=== PATIENT | male | born 1975 ===

== ENCOUNTER 2025-02-16 11:44 | Emergency (ER) | payer MEDICAID, SELFPAY ==
--- NOTE | ~2025-02-16 | CT_ITS ---
CLINICAL HISTORY: DIZZINESS CT Head Without Contrast: Comparison: None Findings: Cortical sulci are symmetric Basal ganglia are unremarkable No shift in midline structures No intraparenchymal bleeding or abnormal extra axial blood fluid collections Normal pituitary size Clear paranasal sinuses Unremarkable orbital structures No depressed fractures Impression: Unremarkable CT of the head. ASPECTS score 10, NORMAL This document has been electronically signed by: Spencer Bunn MD on 02/16/2025 13:29:29
--- NOTE | ~2025-02-16 | CT_ITS ---
CLINICAL HISTORY: dizziness, nausea, vomiting CTA HEAD, bolus contrast injection. 3D reconstructions and MPRs: Comparison: None Findings: Right Carotid Siphon: Normal Right Anterior Cerebral Artery: A1 and A2 segments are unremarkable. There is peripheral cortical enhancement. Right Middle Cerebral Artery: M1 and M2 segments are unremarkable. There is peripheral cortical enhancement. Right Posterior Cerebral Artery: P1 and P2 segments are unremarkable. There is peripheral enhancement Left Carotid Siphon: Normal Left Anterior Cerebral Artery: A1 and A2 segments are unremarkable. There is peripheral cortical enhancement. Left Middle Cerebral Artery: M1 and M2 segments are unremarkable. There is peripheral cortical enhancement. Left Posterior Cerebral Artery: P1 and P2 segments are unremarkable. There is peripheral cortical enhancement. Basilar Artery: Normal Venous drainage: Normal Impression: No signs of aneurysm. No signs of arterial venous malformation. CTA Neck , Bolus contrast injection, 3D reconstructions and MPRs: Comparison: None Findings: Soft tissues of the neck are unremarkable. Superior aorta and branch vessels are unremarkable. Right carotid: No stenosis. (NASCET) Right vertebral: No stenosis. Left Carotid: No stenosis. (NASCET) Left Vertebral: No stenosis. Impression: No stenosis. No aneurysm or dissection. This document has been electronically signed by: Spencer Bunn MD on 02/16/2025 13:39:18
[2025-02-16 11:50] VITALS: BP 139/54; BP 160/88; PULSE 67; PULSE 80; RESP 18; TEMP 36.4; O2SAT 97; O2SAT 98; BMI 24.4
--- NOTE | 2025-02-16 12:37 | ED_ITS ---
HPI - General Adult General Chief complaint: General Medical Stated complaint: DIZZY,N/V,BP 184/102 PER EMS Time Seen by Provider: 02/16/25 12:37 Source: patient, family and RN notes reviewed Mode of arrival: ambulatory Limitations: no limitations History of Present Illness ED Provider: Edgar Gallagher PA-C HPI narrative: This is a [id number]-male, with no known medical problems, who presents today with concerns for dizziness which he noticed when he woke up this morning at 10:00AM. He states that the dizziness worsens with positional changes and has been constant since he woke up. He reports that he was unable to walk due to the severe dizziness. He denies hx of similar symptoms in the past. He does endorse nausea and multiple episodes of vomiting. He denies any recent illness. Reports that he was feeling well yesterday. He denies any chest pain, shortness of breath. He does report some mild epigastric pain. No diarrhea. No fevers or urinary symptoms. No headache or visual changes. No recent head injury. He is not on anticoagulation. Denies taking any medications at home to treat his current symptoms. No other complaints or concerns at this time. MD complaint: Dizziness, nausea, vomiting Onset (ago): day(s) Related Data Home Medications ?Medication ?Instructions ?Recorded ?Confirmed No Known Home Meds 02/16/25 02/16/25 Allergies Allergy/AdvReac Type Severity Reaction Status Date / Time No Known Allergies Allergy Verified 02/16/25 11:54 Review of Systems 2 Review of Systems: Yes all other systems are reviewed and are negative Constitutional: Constitutional: Reports as per HPI, Denies body ache(s), Denies chills and Denies fever(s) Eyes: Eyes: Reports as per HPI, Denies change in vision and Denies eye discharge ENT: Reports system reviewed and no additional complaints, except as documented, Reports as per HPI, Reports vertigo and Denies facial pain Cardiovascular: Cardiovascular: Reports as per HPI and Denies chest pain Respiratory: Respiratory: Reports as per HPI and Denies cough Gastrointestinal: Gastrointestinal: Reports as per HPI, Reports no additional gastrointestinal complaints, Denies abdominal pain, Denies diarrhea, Denies nausea and Denies vomiting Genitourinary: Genitourinary: Reports as per HPI Musculoskeletal: Musculoskeletal: Reports no additional musculoskeletal complaints and Reports as per HPI Integumentary/Breasts: Skin/Breast: Reports system reviewed and no additional complaints, except as docu, Reports as per HPI, Denies erythema, Denies rash and Denies wounds Neurologic: Reports vertigo Psychiatric: Psychiatric: Reports no additional psychiatric complaints and Reports as per HPI Endocrine: Endocrine: Reports no additional endocrine complaints and Reports as per HPI Hematologic/Lymphatic: Hematologic/Lymphatic: Reports no additional hematologic/lymphatic complaints and Reports as per HPI Allergic/Immunologic: Allergic/Immunologic: Reports no additional allergic/immunologic complaints and Reports as per HPI Physical Exam ED Vital Signs: Vital Signs - 24 hr 02/16/25 11:50 02/16/25 13:21 02/16/25 15:31 Temperature 97.5 F Pulse Rate 67 69 59 Respiratory Rate 18 20 Blood Pressure 139/54 L 116/68 109/56 L Pulse Oximetry 98 96 Oxygen Delivery Method Room Air Room Air 02/16/25 15:33 02/16/25 15:35 02/16/25 17:29 Temperature 98.8 F Pulse Rate 55 64 72 Respiratory Rate 18 Blood Pressure 124/70 116/72 126/63 Pulse Oximetry 97 Oxygen Delivery Method Room Air BMI result Body Mass Index 24.4 Const General: cooperative, comfortable and no acute distress Orientation/consciousness: patient oriented x3 Limitations: no limitations HENMT Head: Yes normal to inspection, Yes normocephalic and Yes atraumatic Ears: hearing grossly normal bilaterally General nose exam: Normal external nose present Face and sinus: Yes normal facial exam Mouth: Normal oral and palatal mucosa present, oropharynx normal and moist mucous membranes Throat: Yes posterior oropharynx normal Eyes General: appearance normal, both eyes and all related structures Eyelids: Yes eyelids normal Conjunctivae: conjunctivae normal Sclerae: sclerae normal Pupils: Equal, round and reactive pupils present EOM: EOMs intact bilaterally Neck Neck: Yes normal visual inspection, Yes full ROM and Yes no lymphadenopathy Lymphatic: no lymphadenopathy noted Chest Chest palpation & inspection: normal inspection of the chest Resp Effort & Inspection: normal respiratory effort and able to speak in complete sentences Auscultation: clear to auscultation bilaterally Cardio Rate: regular rate Rhythm: regular rhythm Heart sounds: S1 normal heart sound present and S2 normal heart sound present GI Other: abdomen is soft with TTP in the epigastrium Inspection: Yes normal to inspection Skin General skin exam: no rashes or lesions noted Trauma: no lacerations or abrasions Wounds: no wounds Neuro General: patient oriented x3, moves all extremities and Unable to assess gait Cranial nerves: Yes CN's II-XII intact bilaterally and Yes Equal, round and reactive pupils present Cognition (Neuro): normal cognition Gait exam (Neuro): Unable to assess gait Motor exam (neuro): 5/5 motor strength present throughout and Pronator motor function not present Coordination: [id number] test normal and [id number]-[id number] test normal Pupils: Normal pupillary reactivity/response: bilateral Extrem General: Yes normal to inspection Right upper extremity: normal to inspection Left upper extremity: normal to inspection Left lower extremity: normal to inspection NIH Stroke Scale Internal: Initial- Upon Arrival Time: 13:01 Level of Consciousness: Alert Level of Consciousness Questions: Answers both questions correctly Level of Consciousness Commands: Performs both tasks correctly Best Gaze: Normal Visual: No visual loss Facial Palsy: Normal Motor Arm (Right): No drift Motor Arm (Left): No drift Motor Leg (Right): No drift Motor Leg (Left): No drift Limb Ataxia: Absent Sensory: Normal Best Language: No aphasia Dysarthia: Normal Extinction and Inattention: No abnormality Score: 0 Course Reevaluation(s) Reevaluation #1: Pt's dizziness has improved slightly. Will continue to monitor. 2L ordered. Time: 14:21 Reevaluation #2: Patient's symptoms have improved however patient does report dizziness still despite IV fluids, and meclizine. I discussed this case with my attending physician, Dr. Ta, who recommends admission for MR to r/o stroke.Given unknown etiology of dizziness, patient needs to be admitted for MR to rule out posterior stroke and needs further stroke workup. Patient was agreeable for admission. Spoke to Dr. Alva, hospitalist ho accepts transfer of care. Time: 16:31 Reevaluation #3: Upon admission, patient reporting that he would like to be discharged home. I discussed with patient that this would be leaving against medical advice, and that he should be admitted for further workup. He states that he has family troubles at home and needs to be discharged. He understands the risks and consequences of signing out against medical advice. He was a capacity to make these decisions. Patient signed AMA paperwork. Canceled admission orders. Medications Administered Discontinued Medications Generic Name Dose Route Start Last Admin Trade Name Freq PRN Reason Stop Dose Admin Sodium Chloride 1,000 mls @ 999 mls/hr 02/16/25 12:43 02/16/25 14:30 Ns IV 02/16/25 13:43 Infused .Q1H1M ONE Infusion Sodium Chloride 1,000 mls @ 999 mls/hr 02/16/25 14:22 02/16/25 14:32 Ns IVCONT 02/16/25 15:22 999 mls/hr .Q1H1M ONE Administration Iohexol 100 ml 02/16/25 13:07 02/16/25 13:07 Iohexol 350 Mg/Ml 100 Ml Infus..Btl IV 02/16/25 13:08 70 ml ONCE ONE Administration Meclizine HCl 25 mg 02/16/25 12:43 02/16/25 12:55 Meclizine Hcl 25 Mg Tablet PO 02/16/25 12:44 25 mg ONCE ONE Administration Ondansetron HCl 4 mg 02/16/25 12:43 02/16/25 12:55 Ondansetron Hcl 4 Mg/2 Ml Vial IVPUSH 02/16/25 12:44 4 mg ONCE ONE Administration Medical Decision Making Medical Decision Making [facility] Narrative: This is a 89-vkoy-[id number]-male, with no known medical problems, who presents to the ER with concerns for dizziness, nausea, and vomiting. He woke up at 10:00AM this morning with these symptoms. Since its onset, the dizziness has been constant. On arrival, patient reporting constant dizziness. He is alert and oriented x 4, however reporting . No neurologic deficits on exam, unable to get up off of bed due to dizziness. Dizziness worsening with positional changes. DDX including CVA, vertigo, electrolyte abnormality, orthostatic hypotension, ACS. He has a NIH score of 0. He denies any etoh or drug abuse. He is a smoker. Stroke protocol initiated. CTA and CT head ordered. Pt will be medicated with IV fluids, zofran, and meclizine. Discussed case with attending physician, Dr. Ta, who agrees with work up. Differential Diagnosis Differential Diagnoses: The differential diagnosis associated with the presentation includes See above Lab Data [facility] Lab Attestation statement: I reviewed the patient's lab results. No leukocytosis, stable H&H, Chemistry revealing slight elevation in BUN at 22, creatinine WNL, ALT slightly eleated at 67, trop x 1 neg. 02/16/25 12:49 02/16/25 12:50 Labs: Lab Results 02/16/25 02/16/25 02/16/25 Range/Units 12:49 12:50 13:27 WBC 7.9 (4.8-10.8) X10*3/uL RBC 4.47 L (4.60-5.80) X10*6/uL Hgb 14.7 (14.0-18.0) g/dl Hct 42.5 (42.0-52.0) % MCV 95.1 (80.0-98.0) fL MCH 32.9 (27.0-33.0) pg MCHC 34.6 (31.0-36.0) g/dl RDW 13.8 (11.0-16.0) % Plt Count 192 (160-400) X10*3/uL MPV 10.5 (9.4-12.4) fL Immature Gran % (Auto) 0.5 H (0.0-0.4) % Neut % (Auto) 61.1 (45-73) % Lymph % (Auto) 27.4 (20-40) % [place] % (Auto) 9.6 (2-11) % Eos % (Auto) 0.8 (0-4) % Baso % (Auto) 0.6 (0-2) % Lymph # (Auto) 2.2 (1.2-4.9) X10*3/uL [place] # (Auto) 0.8 (0.1-1.2) X10*3/uL Eos # (Auto) 0.1 (0.0-0.4) X10*3/uL Baso # (Auto) 0.1 (0.0-0.2) X10*3/uL Abs Immat Gran (auto) 0.04 H (0.00-0.03) X10*3/uL Absolute Neuts (auto) 4.8 (2.0-8.3) x10*3/uL Absolute Nucleated RBC 0.000 (0.0-0.012) X10*3/uL Nucleated RBC % (auto) 0.0 (0.0-0.2) /100WBC Sodium 140 (135-145) mmol/L Potassium 4.3 (3.3-5.1) mmol/L Chloride 110 H (96-108) mmol/L Carbon Dioxide 23 (22-29) mmol/L Anion Gap 11 L (12-20) BUN 22 H (9-16) mg/dL Creatinine 0.78 (0.5-1.4) mg/dL Estim Creat Clear Calc 131.7 Estimated GFR > 60 Random Glucose 121 H (60-115) mg/dL Calcium 9.1 (8.4-10.2) mg/dL Magnesium 2.0 (1.6-2.6) mg/dL Total Bilirubin 0.5 (0.0-1.0) mg/dL Direct Bilirubin 0.1 (0.0-0.5) mg/dL AST 34 (5-37) U/L ALT 67 H (0-40) U/L Alkaline Phosphatase 61 (39-117) U/L Troponin I High Sens < 2.7 (<3.5-35.0) ng/L Total Protein 6.9 (6.5-8.0) g/dL Albumin 4.2 (3.5-5.0) g/dL Lipase 14 (8-78) U/L Urine Color Yellow Urine Appearance Cloudy Urine pH 7.5 (5.0-9.0) Ur Specific [place] >= 1.030 H (1.005-1.025) Urine Protein Trace (Neg-Trace) mg/dL Urine Glucose (UA) Negative (Negative) mg/dL Urine Ketones Trace (Negative) mg/dL Urine Blood Negative (Negative) Urine Nitrite Negative (Negative) Ur Leukocyte Esterase Negative (Negative) Influenza Type A (PCR) NEGATIVE (Negative) Influenza Type B (PCR) NEGATIVE (Negative) RSV RNA Qual (PCR) NEGATIVE (Negative) SARS-CoV-2 RNA (RT-PCR) NEGATIVE (Negative) 02/16/25 Range/Units 14:58 WBC (4.8-10.8) X10*3/uL RBC (4.60-5.80) X10*6/uL Hgb (14.0-18.0) g/dl Hct (42.0-52.0) % MCV (80.0-98.0) fL MCH (27.0-33.0) pg MCHC (31.0-36.0) g/dl RDW (11.0-16.0) % Plt Count (160-400) X10*3/uL MPV (9.4-12.4) fL Immature Gran % (Auto) (0.0-0.4) % Neut % (Auto) (45-73) % Lymph % (Auto) (20-40) % [place] % (Auto) (2-11) % Eos % (Auto) (0-4) % Baso % (Auto) (0-2) % Lymph # (Auto) (1.2-4.9) X10*3/uL [place] # (Auto) (0.1-1.2) X10*3/uL Eos # (Auto) (0.0-0.4) X10*3/uL Baso # (Auto) (0.0-0.2) X10*3/uL Abs Immat Gran (auto) (0.00-0.03) X10*3/uL Absolute Neuts (auto) (2.0-8.3) x10*3/uL Absolute Nucleated RBC (0.0-0.012) X10*3/uL Nucleated RBC % (auto) (0.0-0.2) /100WBC Sodium (135-145) mmol/L Potassium (3.3-5.1) mmol/L Chloride (96-108) mmol/L Carbon Dioxide (22-29) mmol/L Anion Gap (12-20) BUN (9-16) mg/dL Creatinine (0.5-1.4) mg/dL Estim Creat Clear Calc Estimated GFR Random Glucose (60-115) mg/dL Calcium (8.4-10.2) mg/dL Magnesium (1.6-2.6) mg/dL Total Bilirubin (0.0-1.0) mg/dL Direct Bilirubin (0.0-0.5) mg/dL AST (5-37) U/L ALT (0-40) U/L Alkaline Phosphatase (39-117) U/L Troponin I High Sens < 2.7 (<3.5-35.0) ng/L Total Protein (6.5-8.0) g/dL Albumin (3.5-5.0) g/dL Lipase (8-78) U/L Urine Color Urine Appearance Urine pH (5.0-9.0) Ur Specific [place] (1.005-1.025) Urine Protein (Neg-Trace) mg/dL Urine Glucose (UA) (Negative) mg/dL Urine Ketones (Negative) mg/dL Urine Blood (Negative) Urine Nitrite (Negative) Ur Leukocyte Esterase (Negative) Influenza Type A (PCR) (Negative) Influenza Type B (PCR) (Negative) RSV RNA Qual (PCR) (Negative) SARS-CoV-2 RNA (RT-PCR) (Negative) Independent Interpretation I performed an independent interpretation of an: EKG Interpretation: EKG sinus bradycardic at 52 BPM,incomplete RBB seen, no previous on file for comparison. Radiology Impression Discussion of test interpretation with radiology: I have reviewed the radiologist's reading. Radiologist Impression: CLINICAL HISTORY: dizziness, nausea, vomiting CTA HEAD, bolus contrast injection. 3D reconstructions and MPRs: Comparison: None Findings: Right Carotid Siphon: Normal Right Anterior Cerebral Artery: A1 and A2 segments are unremarkable. There is peripheral cortical enhancement. Right Middle Cerebral Artery: M1 and M2 segments are unremarkable. There is peripheral cortical enhancement. Right Posterior Cerebral Artery: P1 and P2 segments are unremarkable. There is peripheral enhancement Left Carotid Siphon: Normal Left Anterior Cerebral Artery: A1 and A2 segments are unremarkable. There is peripheral cortical enhancement. Left Middle Cerebral Artery: M1 and M2 segments are unremarkable. There is peripheral cortical enhancement. Left Posterior Cerebral Artery: P1 and P2 segments are unremarkable. There is peripheral cortical enhancement. Basilar Artery: Normal Venous drainage: Normal Impression: No signs of aneurysm. No signs of arterial venous malformation. CTA Neck , Bolus contrast injection, 3D reconstructions and MPRs: Comparison: None Findings: Soft tissues of the neck are unremarkable. Superior aorta and branch vessels are unremarkable. Right carotid: No stenosis. (NASCET) Right vertebral: No stenosis. Left Carotid: No stenosis. (NASCET) Left Vertebral: No stenosis. Impression: No stenosis. No aneurysm or dissection. This document has been electronically signed by: Spencer Bunn MD on 02/16/2025 13:39:18 Dictated By: Spencer Bunn MD ADDENDUMThis document has been electronically signed by: Spencer Bunn MD on 02/16/2025 13:29:29 ADDENDUM: This report was discussed with EDGAR GALLAGHER PA on Feb 16, 2025 13:34:00 EDT. This document has been electronically signed by: Ping Wood on 02/16/2025 13:34:19 Addendum Dictated By: Spencer Bunn MD Addendum Signed By: <Electronically signed by Spencer Bunn MD in [place]> 02/16/25 1334 Addendum Cosigned By: DD/ TD/TT: 02/16/25 CLINICAL HISTORY: DIZZINESS CT Head Without Contrast: Comparison: None Findings: Cortical sulci are symmetric Basal ganglia are unremarkable No shift in midline structures No intraparenchymal bleeding or abnormal extra axial blood fluid collections Normal pituitary size Clear paranasal sinuses Unremarkable orbital structures No depressed fractures Impression: Unremarkable CT of the head. ASPECTS score 10, NORMAL This document has been electronically signed by: Spencer Bunn MD on 02/16/2025 13:29:29 Dictated By: Spencer Bunn MD Critical Care Time Critical Care Time Critical Care Time: Yes Total Critical Care Time: 35 Attestation: I have personally provided critical care time exclusive of time spent on separately billable procedures. Time includes review of lab data, radiology results, discussion with consultants, and monitoring for potential decompensation. Intervention performed as documented. Discharge Plan Discharge Clinical Impression: Dizziness Patient Disposition: Left Against Medical Advice Instructions: Dizziness (ED) Additional Instructions: You were seen in the emergency department due to dizziness. I had admitted you to the medical service so we can further workup your dizziness as it is unclear why you were having this dizziness. Your CT of your head in your CTA of your head do not show any acute findings however we are unable to fully rule out a stroke today as you needed to be admitted to the hospital. Your signing against medical advice as it is warranted that you stay in the hospital to ensure that this is not a serious life-threatening condition. You understand the risks and consequences, and understand that we can not guarantee that your symptoms can cause severe disability and possibly . Please follow-up with your primary care physician. Prescriptions: No Action No Known Home Meds Stand Alone Forms: Against Medical Advice Interventions: ED Discharge Assessment Last Done: 02/16/25 17:29 Discharge Date/Time: 02/16/25 17:56 Print Language: Slovak
--- NOTE | 2025-02-16 12:42 | ECG_ITS ---
Test Reason : DIZZINESS Blood Pressure : */* mmHG Vent. Rate : 52 BPM Atrial Rate : 52 BPM P-R Int : 190 ms QRS Dur : 110 ms QT Int : 442 ms P-R-T Axes : 40 -18 42 degrees QTcB Int : 411 ms Sinus bradycardia Incomplete right bundle branch block Nonspecific T wave abnormality Abnormal ECG No previous ECGs available Referred By: Esme Gallagher Electronically Signed By: RAHAT WARREN
[2025-02-16] MEDS: 0.9 % Sodium Chloride 1,000 ML 999 ML IV (12:51)
[2025-02-16 12:55] LABS: MANUAL DIFF FLAG NO
[2025-02-16] MEDS: Meclizine HCl 25 MG TABLET PO (12:55)
[2025-02-16] MEDS: ondansetron HCL 4 MG/2 ML VIAL IVPUSH (12:55)
[2025-02-16 12:58] LABS: Basophils Absolute Auto 0.1 X10*3/uL (0.0-0.2); Basophils Percent Auto 0.6 % (0-2); Eosinophils Absolute Auto 0.1 X10*3/uL (0.0-0.4); Eosinophils Percent Auto 0.8 % (0-4); Hematocrit 42.5 % (42.0-52.0); Hemoglobin 14.7 g/dl (14.0-18.0); Imm Gran Abs Auto 0.04 X10*3/uL (0.00-0.03); Imm Gran Pct Auto 0.5 % (0.0-0.4); Lymphocytes Absolute Auto 2.2 X10*3/uL (1.2-4.9); Lymphocytes Percent Auto 27.4 % (20-40); Mean Corpuscular HGB Conc 34.6 g/dl (31.0-36.0); Mean Corpuscular Hemoglobin 32.9 pg (27.0-33.0); Mean Corpuscular Volume 95.1 fL (80.0-98.0); Mean Platelet Volume 10.5 fL (9.4-12.4); Monocytes Absolute Auto 0.8 X10*3/uL (0.1-1.2); Monocytes Percent Auto 9.6 % (2-11); Neutrophils Absolute Auto 4.8 x10*3/uL (2.0-8.3); Neutrophils Percent Auto 61.1 % (45-73); Platelet Count 192 X10*3/uL (160-400); Red Blood Count 4.47 X10*6/uL (4.60-5.80); Red Cell Distribution Width 13.8 % (11.0-16.0); White Blood Count 7.9 X10*3/uL (4.8-10.8)
[2025-02-16] MEDS: iohexoL 350 MG/ML 100 ML INFUS..BTL IV (13:07)
[2025-02-16 13:14] LABS: Alanine Aminotransferase 67 U/L (0-40); Albumin Level 4.2 g/dL (3.5-5.0); Alkaline Phosphatase 61 U/L (39-117); Anion Gap 11 (12-20); Aspartate Amino Transferase 34 U/L (5-37); Bilirubin Direct 0.1 mg/dL (0.0-0.5); Bilirubin Total 0.5 mg/dL (0.0-1.0); Blood Urea Nitrogen 22 mg/dL (9-16); Calcium 9.1 mg/dL (8.4-10.2); Carbon Dioxide 23 mmol/L (22-29); Chloride 110 mmol/L (96-108); Creatinine Clr Calc Pharmacy 131.7; Estimated Glomerular Filt Rate > 60; Glucose Random 121 mg/dL (60-115); Lipase 14 U/L (8-78); Potassium 4.3 mmol/L (3.3-5.1); Sodium 140 mmol/L (135-145); Total Protein 6.9 g/dL (6.5-8.0)
[2025-02-16 13:21] VITALS: BP 116/68; PULSE 69; RESP 20; O2SAT 96
[2025-02-16 13:24] LABS: Troponin-I High Sensitivity < 2.7 ng/L (<3.5-35.0)
[2025-02-16 13:32] LABS: Influenza A PCR NEGATIVE (Negative); Influenza B PCR NEGATIVE (Negative); Resp Syncy Virus RNA Qual PCR NEGATIVE (Negative); SARS COV2 PCR INHOUSE NEGATIVE (Negative)
[2025-02-16 13:34] LABS: Appearance Urine Cloudy; Color Urine Yellow; Glucose Urine UA Negative (Negative); Leukocyte Esterase Urine Negative (Negative); Nitrite Urine Negative (Negative); PH 7.5 (5.0-9.0); Specific Gravity - Urine >= 1.030 (1.005-1.025); Urine Blood Negative (Negative); Urine Ketones Trace mg/dL (Negative); Urine Protein Trace mg/dL (Neg-Trace)
[2025-02-16] MEDS: 0.9 % Sodium Chloride 1,000 ML 999 ML IVCONT (14:32)
[2025-02-16 15:31] VITALS: BP 109/56; PULSE 59
[2025-02-16 15:33] VITALS: BP 124/70; PULSE 55
[2025-02-16 15:35] VITALS: BP 116/72; PULSE 64
[2025-02-16 15:53] LABS: Troponin-I High Sensitivity < 2.7 ng/L (<3.5-35.0)
--- NOTE | 2025-02-16 16:49 | P.HPHOSP_ITS ---
History of Present Illness Date of Service: 02/16/25 Attending physician on admission: My Alva Chief Complaint: vertiago PMFSH Social History Advance Directives: No Advance Directives Information Provided: Yes Meds Allergies Allergy/AdvReac Type Severity Reaction Status Date / Time No Known Allergies Allergy Verified 02/16/25 11:54 Active Medications: Current Medications Acetaminophen (Acetaminophen 325 Mg Tablet) 650 mg PO Q6H PRN PRN Reason: Pain, Mild 1-3,fever,headache Calcium Carbonate (Calcium Carbonate 750 Mg Tab.Chew) 750 mg PO Q4H PRN PRN Reason: Heartburn Lactated Ringer's (Lr) 1,000 mls @ 100 mls/hr IVCONT .Q10H HUGH Magnesium Hydroxide (Milk Of Magnesia 30 Ml Oral.Susp) 30 ml PO DAILY PRN PRN Reason: Constipation Meclizine HCl (Meclizine Hcl 25 Mg Tablet) 25 mg PO TID PRN PRN Reason: Nausea Melatonin (Melatonin 3 Mg Tablet) 6 mg PO BEDTIME PRN PRN Reason: Insomnia Sodium Chloride (0.9 % Sodium Chloride Flush 3 Ml Syringe) 3 ml IVFLUSH QSHIFT HUGH Physical Exam 2 Vital Signs and Narrative: Vital Signs: Last Vital Signs Temp 97.5 F 02/16/25 11:50 Pulse 64 02/16/25 15:35 Resp 20 02/16/25 13:21 BP 116/72 02/16/25 15:35 Pulse Ox 96 02/16/25 13:21 O2 Del Method Room Air 02/16/25 13:21 BMI result Body Mass Index 24.4 Results Labs 02/16/25 12:49 02/16/25 12:50 Labs: Laboratory Results - last 24 hr 02/16/25 02/16/25 02/16/25 12:49 12:50 13:27 MCV 95.1 MCH 32.9 MCHC 34.6 RDW 13.8 Plt Count 192 MPV 10.5 Immature Gran % (Auto) 0.5 H Neut % (Auto) 61.1 Lymph % (Auto) 27.4 [place] % (Auto) 9.6 Eos % (Auto) 0.8 Baso % (Auto) 0.6 Lymph # (Auto) 2.2 [place] # (Auto) 0.8 Eos # (Auto) 0.1 Baso # (Auto) 0.1 Abs Immat Gran (auto) 0.04 H Absolute Neuts (auto) 4.8 Absolute Nucleated RBC 0.000 Nucleated RBC % (auto) 0.0 Anion Gap 11 L Estim Creat Clear Calc 131.7 Estimated GFR > 60 Random Glucose 121 H Calcium 9.1 Magnesium 2.0 Total Bilirubin 0.5 Direct Bilirubin 0.1 AST 34 ALT 67 H Alkaline Phosphatase 61 Total Protein 6.9 Albumin 4.2 Lipase 14 Urine Color Yellow Urine Appearance Cloudy Urine pH 7.5 Ur Specific [place] >= 1.030 H Urine Protein Trace Urine Glucose (UA) Negative Urine Ketones Trace Urine Blood Negative Urine Nitrite Negative Ur Leukocyte Esterase Negative Influenza Type A (PCR) NEGATIVE Influenza Type B (PCR) NEGATIVE RSV RNA Qual (PCR) NEGATIVE SARS-CoV-2 RNA (RT-PCR) NEGATIVE Quality VTE VTE Risk Level:: Medical - moderate - high VTE Device Contraindication: N/A - Device Ordered VTE Drug Contraindication: N/A - Med Ordered
--- NOTE | 2025-02-16 16:55 | PHA.MEDREC ---
Pharmacy Consult ? Medication Reconciliation Pharmacy has completed the medication reconciliation. Patient reports no home medications
[2025-02-16 17:29] VITALS: BP 126/63; PULSE 72; RESP 18; TEMP 37.1; O2SAT 97
== END 2025-02-16 17:56 | disposition left against medical advice (07) ==
LOC: HO.ED 16:41 → HO.EDOVER 17:04 → HO.ED 17:23
PROVIDERS: Physician Assistant Medical; Emergency Provider Emergency Medicine Emergency Medical Services
DX: R42 Dizziness and giddiness (principal); R11.2 Nausea with vomiting, unspecified; Z03.818 Encounter for observation for suspected exposure to other biological agents ruled out
CPT/HCPCS: 0241U; 36415; 70450; 70496; 70498; 80048; 80076; 81003; 83690; 83735; 84484; 85025; 93005; 96361; 96374; 99284; J2405; Q9967

== ENCOUNTER → 2025-02-16 12:42 | Outpatient (BNV) | payer MEDICAID, SELFPAY | PROVIDERS: Emergency Provider Emergency Medicine Emergency Medical Services; Visit Provider Internal Medicine | DX: I45.10 Unspecified right bundle-branch block (principal); R00.1 Bradycardia, unspecified | CPT/HCPCS: 93010 ==

== ENCOUNTER → 2025-02-16 12:51 | Outpatient (BNV) | payer OTHER, SELFPAY | PROVIDERS: Emergency Provider Emergency Medicine Emergency Medical Services; Visit Provider Radiology Diagnostic Radiology | DX: R42 Dizziness and giddiness (principal); R11.2 Nausea with vomiting, unspecified | CPT/HCPCS: 70450; 70496 ==